=== PATIENT | male | born 1990 | race African-American/Black ===

== ENCOUNTER 2019-06-06 08:49 | Emergency (ER) | payer BC ==
[~2019-06-06] VITALS: Ht 170.2 cm; Wt 102.0 kg
[2019-06-06 09:10] VITALS: BP 162/95
[2019-06-06 09:44] LABS: INFLUENZA A PATIENT NEGATIVE (NEGATIVE)
[2019-06-06 09:45] LABS: INFLUENZA B PATIENT POSITIVE (NEGATIVE)
[2019-06-06] MEDS ORDERED: HYDROcodone/APAP 5/325MG 1 TAB TABLET PO ONE (09:45)
[2019-06-06] MEDS ORDERED: IBUPROFEN 400 MG TABLET. PO ONE (09:45)
--- NOTE | 2019-06-06 09:45 | PHYS DOC ---
Past Medical History Past Medical History: No Pertinent History Past Surgical History: No Surgical History Alcohol Use: None Adult General Chief Complaint Chief Complaint: FEVER HPI HPI Patient is a 29 year old male without history of medical problem who presents with complaint of fever and cough. Patient complaining of gradual onset of nonproductive cough, sore throat, fever up to 102, nasal congestion, that started 4 days ago and gradually getting worse. Patient states he had ibuprofen last night. Patient had sick contacts with flu at home. Patient denies vomiting, diarrhea, urinary symptoms, chest pain, shortness of breath. Review of Systems Review of Systems Constitutional: Reports fever and chills Eyes: Denies change in visual acuity, redness, or eye pain [] HENT: Reports nasal congestio , sore throat and cough was denies shortness of breath [] Cardiovascular: No additional information not addressed in HPI [] GI: Denies abdominal pain, nausea, vomiting, bloody stools or diarrhea [] : Denies dysuria or hematuria [] Musculoskeletal: Denies back pain or joint pain [] Integument: Denies rash or skin lesions [] Neurologic: Denies headache, focal weakness or sensory changes [] Endocrine: Denies polyuria or polydipsia [] All other systems were reviewed and found to be within normal limits, except as documented in this note. Current Medications Current Medications Current Medications Medications (Trade) Dose Ordered Sig/Maryan Start Time Stop Time Status Last Admin Dose Admin Acetaminophen/ Hydrocodone Bitart (Lortab 5/325) 1 tab 1X ONCE 06/06/19 09:45 06/06/19 09:46 DC 06/06/19 09:50 1 TAB Ibuprofen (Motrin) 800 mg 1X ONCE 06/06/19 09:45 06/06/19 09:46 DC 06/06/19 09:50 800 MG Allergies Allergies Allergies Coded Allergies Type Severity Reaction Last Updated Verified No Known Drug Allergies 06/06/19 No Physical Exam Physical Exam Constitutional: Well developed, well nourished, mild distress, non-toxic appearance, temperature of 103. [] HENT: Normocephalic, atraumatic, bilateral external ears normal, oropharynx moist, pharyngeal erythema and tonsillar edema, no oral exudates, nose normal. [] Eyes: PERRLA, EOMI, conjunctiva normal, no discharge. [] Neck: Normal range of motion, no tenderness, supple, no stridor. [] Cardiovascular: Tachycardia, no murmur [] Lungs & Thorax: Bilateral breath sounds clear to auscultation [] Abdomen: Bowel sounds normal, soft, no tenderness, no masses, no pulsatile masses. [] Skin: Warm, dry, no erythema, no rash. [] Back: No tenderness, no CVA tenderness. [] Extremities: No tenderness, no cyanosis, no clubbing, ROM intact, no edema. [] Neurologic: Alert and oriented X 3, normal motor function, normal sensory function, no focal deficits noted. [] Psychologic: Affect normal, judgement normal, mood normal. [] Current Patient Data Vital Signs Vital Signs Date Time Temp Pulse Resp B/P (MAP) Pulse Ox O2 Delivery O2 Flow Rate FiO2 06/06/19 09:10 103.0 129 20 162/95 (117) 96 Room Air 103.0 Lab Values Laboratory Tests Test 06/06/19 09:15 06/06/19 09:30 Influenza Type A Antigen Negative (NEGATIVE) Influenza Type B Antigen Positive (NEGATIVE) Group A Streptococcus Rapid Negative (NEGATIVE) EKG EKG [] Radiology/Procedures Radiology/Procedures [] Course & Med Decision Making Course & Med Decision Making Pertinent Labs reviewed. (See chart for details) Evaluation of patient in ER showed 29-year-old male patient with fever of 103 at arrival to ER and flulike symptom for 4 days. Patient treated with ibuprofen and [place] and felt better. patient had positive flu B. plan to give prescription of tessalon, norco and ibuprofen. I've spoken with the patient and/or caregivers. I've explained the patient's condition, diagnosis and treatment plan based on information available to me at this time. I've answered the patient's and/or caregivers questions and addressed any concerns. The patient and/or caregivers have a good understanding the patient's diagnosis, condition and treatment plan as can be expected at this point. Vital signs have been stabilized. The patient's condition is stable for discharge from the emergency department. The patient will pursue further outpatient evaluation with her primary care pr ovider or other designated consulting physician as outlined in the discharge instructions. Patient and/or caregivers are agreeable to this plan of care and follow-up instructions have been explained in detail. The patient and/or caregivers have received these instructions in written format and expressed understanding of these discharge instructions. The patient and her caregivers a re aware that if any significant change in condition or worsening of symptoms should prompt him to immediately return to this of the closest emergency department. If an emergent department is not readily available I would encourage him to call 911. Duc Disclaimer Duc Disclaimer This electronic medical record was generated, in whole or in part, using a voice recognition dictation system. Departure Departure Impression: Primary Impression: Influenza B Additional Impression: Fever Disposition: HOME, SELF-CARE (at 1002) Condition: IMPROVED Referrals: NO PCP (PCP) Patient Instructions: Cough, Adult, Fever, Adult, Influenza Virus Vaccine injection (Fluarix) Additional Instructions: Drink plenty of liquids Follow-up with your primary care physician in 3-5 days Return to ER if not getting better Alternate Tylenol and ibuprofen every 4 hours as needed for fever and pain Thank you for visiting [facility]. We appreciate you trusting us with your care. If any additional problems come up don't hesitate to return to visit us. Please follow up with your primary care provider so they can plan additional care if needed and know about the problem that you had. If symptoms worsen come back to the Emergency Department. Any concerning symptoms that start such as chest pain, shortness of air, weakness or numbness on one side of the body, running high fevers or any other concerning symptoms return to the ER. Scripts Benzonatate (TESSALON PERLE) 100 Mg Capsule 1 CAP PO TID for cough, #21 CAP Prov: MELISSA WILCOX MD 06/06/19 Ibuprofen (IBUPROFEN) 800 Mg Tablet 800 MG PO PRN Q8HRS PRN for INFLAMMATION, #20 TAB Prov: MELISSA WILCOX MD 06/06/19 Hydrocodone/Apap 5-325 (NORCO 5-325 TABLET) 1 Each Tablet 1 TAB PO PRN Q6HRS PRN for PAIN, #14 TAB 0 Refills Prov: MELISSA WILCOX MD 06/06/19 Problem Qualifiers Additional Impression: Fever Fever type: unspecified Qualified Codes: R50.9 - Fever, unspecified MELISSA WILCOX MD Jun 06, 2019 09:45
[2019-06-06] MEDS ORDERED: HYDR-3164 PO (10:04)
[2019-06-06] MEDS ORDERED: IBUP-1060 PO (10:07)
[2019-06-06] MEDS ORDERED: BENZ100C PO (10:07)
== END 2019-06-06 10:15 | disposition home or self-care (01) ==
LOC: ER 08:49
DX: J10.1 Influenza due to other identified influenza virus with other respiratory manifestations (principal); R09.81 Nasal congestion; R05 Cough
CPT/HCPCS: 87070; 87804; 87880; 99284